=== PATIENT | female | born 1950 | race Caucasian/White ===

== ENCOUNTER → 2016-10-01 | Outpatient (CLI) | payer BC ==
[~2016-10-01] MED LIST: ACET-1600 PO; AMOX1TAB64 PO; APIX5TAB PO; CHLO15MO PO; DILT180C72 PO; DRON400T PO; FLUT1DIS3 INH; FURO-93 PO; HYDR-3240 PO; MOUTH RINSE PO; augmentin PO
== END | disposition home or self-care (01) ==
LOC: CFH 10:17
PROVIDERS: ATTEND Internal Medicine
DX: N95.0 Postmenopausal bleeding (principal); R93.8 Abnormal findings on diagnostic imaging of other specified body structures
CPT/HCPCS: 76830